=== PATIENT | female | born 1965 | race Caucasian/White ===

== ENCOUNTER → 2016-09-11 | Outpatient (CLI) | payer MEDICAID ==
[~2016-09-11] MED LIST: FLEXERIL-DPS10 MG PO; GLUCOPHAGE-DPS500 MG PO; LEVOTHYROXINE112 MCG PO; NEURONTIN DPS300 MG PO; PROVENTIL HFA6.7 GM IH; TRICOR145 MG PO; ULTRAM DPS50 MG PO; ZOLOFT DPS100 MG PO; ZYRTEC DPS10 MG PO
== END | disposition home or self-care (01) ==
LOC: RAD.S 08:46
DX: R10.13 Epigastric pain (principal); K21.9 Gastro-esophageal reflux disease without esophagitis; K22.4 Dyskinesia of esophagus; K63.89 Other specified diseases of intestine

== ENCOUNTER → 2016-09-17 | Outpatient (CLI) | payer MEDICAID | END | disposition home or self-care (01) | LOC: RAD.S 09-15 08:00 | DX: R10.13 Epigastric pain (principal); K76.0 Fatty (change of) liver, not elsewhere classified; R16.0 Hepatomegaly, not elsewhere classified; K57.90 Diverticulosis of intestine, part unspecified, without perforation or abscess without bleeding; Z90.10 Acquired absence of unspecified breast and nipple ==

== ENCOUNTER 2017-01-31 12:26 | Emergency (ER) | payer MEDICAID ==
--- NOTE | 2017-02-01 23:41 | ER ---
ADMIT: 01/31/2017 RM/LOC: ER [facility] MR#: [id number] [facility] [address] [place], [place] [id number] [facility] [address] [place] [address] Emergency Room Report SEX: F AGE: 51 : 1965 DATE: 01/31/2017 TIME: 1226 hours Please refer to my T-sheet for complete H and P. HISTORY OF PRESENT ILLNESS: Briefly, the patient is a 51-year-old, who comes in with back pain. It has been bothering her from a long time. She was actually here a month ago for similar thing. She says she saw Dr. Underwood and he is planning on doing an MRI. She has had surgery on her low back and her neck in the past. She says she has only taken Advil. PHYSICAL EXAMINATION: VITAL SIGNS: Stable. HEENT: Grossly normal. LUNGS: Clear. HEART: Regular. ABDOMEN: Soft. EXTREMITIES: Her right upper extremity has an erythematous area. She says it has been there for couple weeks. It is itching, its warm, and tender. She is neurovascularly intact distally. BACK: She has tenderness in her lower lumbar area, but no gross abnormality is noted. NEURO: She has no focal findings. EMERGENCY DEPARTMENT COURSE: Uneventful. ASSESSMENT: 1. Low back pain, chronic in nature. 2. Right arm cellulitis. PLAN: Keflex, I wrote a script for #15 [place], use Advil, follow-up with Carlos. Alex Gutierrez MD/ candelario JOB #: [id number] CC: Dayron Del Angel MD, Attending Physician Duy Gonzalez MD, Family Physician
== END 2017-01-31 13:10 | disposition home or self-care (01) ==
LOC: ER 12:26
DX: M54.5 Low back pain (principal); G89.29 Other chronic pain; L03.113 Cellulitis of right upper limb; F17.210 Nicotine dependence, cigarettes, uncomplicated; E11.9 Type 2 diabetes mellitus without complications; I10 Essential (primary) hypertension; Z79.4 Long term (current) use of insulin; Z79.899 Other long term (current) drug therapy